=== PATIENT | male | born 1995 | race Asian ===

== ENCOUNTER 2023-11-25 09:59 | Outpatient (CLI) | payer BC, OTHER ==
[2023-11-25 12:22] LABS: *BILIRUBIN,URIN NEGATIVE (NEGATIVE); *BLOOD, URINE NEGATIVE (NEGATIVE); *CLARITY,URINE CLEAR (CLEAR); *COLOR,URINE YELLOW (YELLOW); *KETONES,URINE NEGATIVE (NEGATIVE); *PROTEIN,URINE NEGATIVE (NEGATIVE); *UROBILINOGEN,URINE 0.2 E.U./dl (NORMAL); LEUKOCYTE ESTERASE ,URINE NEGATIVE (NEGATIVE); NITRITE, URINE NEGATIVE (NEGATIVE); UGLUCOSE NEGATIVE (NEGATIVE)
[2023-11-25 12:31] LABS: BASOPHILS # (AUTO) 0.1 K/UL (0.0-0.2); BASOPHILS % (AUTO) 2.3 % (0.0-2.0); EOSINOPHILS # (AUTO) 0.1 K/uL (0.0-0.7); EOSINOPHILS % (AUTO) 3.3 % (0.0-7.0); HEMATOCRIT 45.1 % (36.7-47.1); HEMOGLOBIN 15.5 g/dL (12.5-16.3); LYMPHOCYTES # (AUTO) 1.4 K/uL (0.8-4.8); LYMPHOCYTES % (AUTO) 31.4 % (20.5-51.5); MEAN CORPUSCULAR HEMOGLOBIN 30.6 uug (23.8-33.4); MEAN CORPUSCULAR HGB CONC 34 g/dL (32.5-36.3); MEAN CORPUSCULAR VOLUME 89.2 fL (73.0-96.2); MONOCYTES # (AUTO) 0.5 K/uL (0.1-1.30); MONOCYTES % (AUTO) 10.6 % (0.0-11.0); NEUTROPHILS # (AUTO) 2.3 K/uL (1.8-8.9); NEUTROPHILS % (AUTO) 52.4 % (38.5-71.5); PLATELET COUNT (AUTO) 257 K/uL (152-348); RED BLOOD CELL COUNT(AUTO) 5.06 MIL/uL (4.06-5.63); RED CELL DISTRIBUTION WIDTH 13.1 % (12.1-16.2); WHITE BLOOD COUNT (AUTO) 4.3 K/uL (3.6-10.2)
[2023-11-25 12:35] LABS: DIFFERENTIAL COMMENT 1
[2023-11-25 12:45] LABS: ERYTHROCYTE SEDIMENTATION RATE 12 MM/HR (0-15)
[2023-11-25 12:57] LABS: IRON, SERUM 114 ug/dL (50-175)
[2023-11-25 13:08] LABS: ALANINE AMINOTRANSFERASE 34 U/L (16-63); ALBUMIN 4.1 g/dL (3.4-5.0); ALKALINE PHOSPHATASE 52 U/L (50-136); ASPARTATE AMINOTRANSFERASE 8 U/L (15-37); BILIRUBIN,TOTAL 0.6 mg/dL (0.2-1.0); CARBON DIOXIDE 29 mmol/L (21-32); CHLORIDE 104 mmol/L (98-107); CHOLESTEROL 180 mg/dL (<200); CREATININE 0.6 mg/dL (0.6-1.3); FERRITIN 318 ng/mL (26-388); GLUCOSE 91 mg/dL (74-106); HDL CHOLESTEROL 48 mg/dL (40-60); MAGNESIUM 2.2 mg/dL (1.8-2.4); POTASSIUM 3.8 mmol/L (3.5-5.1); SODIUM SERUM 142 mmol/L (136-145); TOTAL PROTEIN, SERUM 7.7 g/dL (6.4-8.2); TRIGLYCERIDES 78 MG/DL (30-150); UREA NITROGEN, BLOOD 9 mg/dL (7-18)
[2023-11-25 14:02] LABS: THYROID STIMULATING HORMONE 2.128 mIU/mL (0.358-3.740)
[2023-11-26 22:08] LABS: *CHLAMYDIA NAA Negative (Negative); *GC NAA Negative (Negative)
[2023-11-27 01:06] LABS: THYROID PEROXIDASE (TPO) AB <9 IU/mL (0-34)
[2023-11-27 03:11] LABS: *TRIC.VAG. NAA Negative (Negative)
[2023-11-27 04:06] LABS: VIT D, 25-HYDROXY 53.7 ng/mL (30.0-100.0)
[2023-11-27 09:10] LABS: THYROGLOBULIN ANTIBODY < 1.0 IU/mL (0.0-0.9)
[2023-12-01 10:24] LABS: HIV-1 p24 ANTIGEN NON REACTIVE (NONREACTIVE); HIV-1/2 ANTIBODY NON REACTIVE (NONREACTIVE)
[2023-12-04 11:09] LABS: *F004-IGE WHEAT <0.10 kU/L (Class 0); *F008-IGE CORN <0.10 kU/L (Class 0); *F013-IGE PEANUT <0.10 kU/L (Class 0); *F014-IGE SOYBEAN <0.10 kU/L (Class 0)
== END 2023-11-25 23:59 | disposition home or self-care (01) ==
LOC: LAB 09:59
PROVIDERS: ATTEND Internal Medicine
DX: Z00.00 Encounter for general adult medical examination without abnormal findings (principal); Z11.3 Encounter for screening for infections with a predominantly sexual mode of transmission; R39.11 Hesitancy of micturition; I25.10 Atherosclerotic heart disease of native coronary artery without angina pectoris; R79.89 Other specified abnormal findings of blood chemistry; E04.9 Nontoxic goiter, unspecified; E55.9 Vitamin D deficiency, unspecified; Z79.899 Other long term (current) drug therapy
CPT/HCPCS: 36415; 51798; 70030-TC; 82306; 83550; 83735; 84443; 84480; 85025; 85651; 86140; 86592; 87491; 87806